=== PATIENT | male | born 2000 | race Caucasian/White ===

== ENCOUNTER 2024-03-15 23:26 | Emergency (ER) | payer BC, SELFPAY ==
[2024-03-15 23:27] VITALS: BP 106/51; PULSE 71; RESP 18; TEMP 36.4; O2SAT 97; BMI 23.7
[2024-03-15 23:46] LABS: Basophils Percent Auto 0.3 % (0-2); Eosinophils Absolute Auto 0.2 X10*3/uL (0.0-0.4); Eosinophils Percent Auto 2.5 % (0-4); Hematocrit 46.5 % (42.0-52.0); Hemoglobin 15.6 g/dl (14.0-18.0); Imm Gran Abs Auto 0.01 X10*3/uL (0.00-0.03); Imm Gran Pct Auto 0.1 % (0.0-0.4); Lymphocytes Percent Auto 14.1 % (20-40); MANUAL DIFF FLAG NO; Mean Corpuscular HGB Conc 33.5 g/dl (31.0-36.0); Mean Corpuscular Hemoglobin 29.9 pg (27.0-33.0); Mean Corpuscular Volume 89.3 fL (80.0-98.0); Mean Platelet Volume 10.7 fL (9.4-12.4); Monocytes Absolute Auto 0.7 X10*3/uL (0.1-1.2); Monocytes Percent Auto 9.3 % (2-11); Neutrophils Absolute Auto 5.3 x10*3/uL (2.0-8.3); Neutrophils Percent Auto 73.7 % (45-73); Platelet Count 167 X10*3/uL (160-400); Red Blood Count 5.21 X10*6/uL (4.60-5.80); Red Cell Distribution Width 12.1 % (11.0-16.0); White Blood Count 7.2 X10*3/uL (4.8-10.8)
[2024-03-15 23:56] LABS: IDNOW Serial# 6674DD1D; Strep A Nucleic Acid Negative (Negative)
[2024-03-15 23:59] LABS: Alanine Aminotransferase 24 U/L (0-40); Albumin Level 4.4 g/dL (3.5-5.0); Alkaline Phosphatase 80 U/L (39-117); Anion Gap 13 (12-20); Aspartate Amino Transferase 27 U/L (5-37); Blood Urea Nitrogen 18 mg/dL (9-16); Calcium 9.4 mg/dL (8.4-10.2); Carbon Dioxide 22 mmol/L (22-29); Chloride 108 mmol/L (96-108); Creatinine Clr Calc Pharmacy 142.8; Estimated Glomerular Filt Rate > 60; Glucose Random 97 mg/dL (60-115); Potassium 4.2 mmol/L (3.3-5.1); Sodium 139 mmol/L (135-145); Total Protein 7.6 g/dL (6.5-8.0)
[2024-03-16 00:24] LABS: Influenza A PCR NEGATIVE (Negative); Influenza B PCR NEGATIVE (Negative); Resp Syncy Virus RNA Qual PCR NEGATIVE (Negative); SARS COV2 PCR INHOUSE NEGATIVE (Negative)
--- OUTSIDE RECORDS SUMMARY | 2024-03-16 03:30 | XMS_ITS | Continuity of Care Document ---
Author Organization [facility] Address [address] [place] [id number]- Care Team Providers Care Senior Civil Engineer Name Role Phone Narciso SALINAS, Dede Primary Care Physician [facility] Date[facility]): 06/[facility]/21 - 07/26/21 [facility] [address] [place] [id number] Allergies, Adverse Reactions, Alerts No Known Medication Allergies Immunizations Given and Recorded Vaccine Date Status Refusal Reason influenza virus vaccine, inactivated 1 03/12/18 Gi emerita influenza virus vaccine, inactivated 08/28/14 Give n influenza virus vaccine, inactivated 05/05/13 Bryan rded Human Papillomavirus Vaccine 2 12/29/14 Given Human Papillomavirus Vaccine 05/05/13 Recorded tetanus/diphtheria/pertussis, acel(Tdap) 05/05/13 Recorded tetanus-diphtheria toxoids (Td) 05/05/13 Recorded Meningococcal Conjugate Vaccine 05/05/13 Recorded Varicella Virus Vaccine 05/05/13 Recorded Varicella Virus Vaccine 01/17/03 Recorded diphtheria/tetanus/pertussis, acel(DTaP) 12/26/05 Recorded diphtheria/tetanus/pertussis, acel(DTaP) 10/05/03 Recorded diphtheria/tetanus/pertussis, acel(DTaP) 11/01/02 Recorded diphtheria/tetanus/pertussis, acel(DTaP) 06/21/02 Recorded diphtheria/tetanus/pertussis, acel(DTaP) 02/18/02 Recorded Measles/Mumps/Rubella Virus Vaccine 12/26/05 Recor ded Measles/Mumps/Rubella Virus Vaccine 01/17/03 Recor ded haemophilus b conjugate (PRP-OMP)vaccine 10/04/05 Recorded haemophilus b conjugate (PRP-OMP)vaccine 10/05/03 Recorded haemophilus b conjugate (PRP-OMP)vaccine 11/01/02 Recorded haemophilus b conjugate (PRP-OMP)vaccine 06/21/02 Recorded haemophilus b conjugate (PRP-OMP)vaccine 02/18/02 Recorded Poliovirus Vaccine, Inactivated 12/27/03 Recorded Poliovirus Vaccine, Inactivated 10/05/03 Recorded Poliovirus Vaccine, Inactivated 06/21/02 Recorded Poliovirus Vaccine, Inactivated 06/21/02 Recorded Poliovirus Vaccine, Inactivated 02/18/02 Recorded pneumococcal 23-valent vaccine 10/05/03 Recorded pneumococcal 23-valent vaccine 11/15/02 Recorded pneumococcal 23-valent vaccine 06/21/02 Recorded hepatitis B pediatric vaccine 11/15/02 Recorded hepatitis B pediatric vaccine 03/22/02 Recorded hepatitis B pediatric vaccine 01/22/02 Recorded 1Result Comment: [id number] 2Result Comment: Gardasil 9 Medications acetaminophen 325 mg oral capsule 2 capsule = 650 mg, By Mouth, Every 4 hours, PRN as needed for fever, # 50 capsule, 0 Refills, Maintenance, 10/09/18 16:48:08 EDT, Capsule Start Date: 10/09/18 Status: Ordered albuterol 0.083% inhalation solution 6 mL = 5 mg, Inhalation, Every 6 hours, PRN for wheezing, # 60 each, 0 Refills, Maintenance, 06/12/16 8:40:13, Solution Start Date: 06/12/16 Status: Ordered albuterol 90 mcg/inh inhalation powder 4 puffs, Inhalation, Every 4 hours, PRN as needed, # 1 each, 0 Refills, Maintenance, 06/12/16 8:40:42, Powder Start Date: 06/12/16 Status: Ordered albuterol CFC free 90 mcg/inh inhalation aerosol 2, puffs, Inhalation, Every 4 hours, May use up to 6 puffs as needed., # 1 each, Refills 3, Tot. Refills 3, Maintenance, 05/13/18 14:02:28 EST, Route to Pharmacy Electronically, [id number], [facility]/pharmacy #[id number] Start Date: 05/13/18 Status: Ordered benzoyl peroxide-clindamycin 5%-1% topical gel See Instructions, APPLY THIN LAYER IN THE MORNING IF SKIN BECOMES TOO DRY, USE EVERY OTHER DAY, # 50 Gm, 1 Refills, Maintenance, [facility] STORE [id number], 28, APPLY THIN LAYER IN THE MORNING IF SKIN BECOMES TOO DRY, USE EVERY OTHER DAY, 164, cm, 06/11/19 12:20... Start Date: 10/26/19 Status: Ordered Eucerin Plus topical lotion 1 application, Topically, 2 times a day, PRN for dry skin, # 180 mL, 0 Refills, Maintenance, 10/03/16 11:52:09, Lotion, 1 application Topically 2 times a day,PRN:for dry skin Start Date: 10/03/16 Status: Ordered Flonase 50 mcg/inh nasal spray 2 sprays, Nares, Both, Daily, # 2 each, 0 Refills, Maintenance, 10/03/16 11:51:35, [place], 2 sprays Nares, Both Daily Start Date: 10/03/16 Status: Ordered Flonase 50 mcg/inh nasal spray 2 sprays, Nares, Both, Daily in AM, # 16 Gm, 0 Refills, Maintenance, 05/13/18 14:10:56 EST, [place], 2 sprays Nares, Both Daily in AM Start Date: 05/13/18 Status: Ordered hydrocortisone 1% topical cream See Instructions, apply thin layer to affected skin 2 times a day, # 60 Gm, 3 Refills, Maintenance,07/24/17 15:53:08, apply thin layer to affected skin 2 times a day Start Date: 07/24/17 Status: Ordered ibuprofen 600 mg oral tablet 600 mg, 1, tablet, By Mouth, Every 6 hours, # 40 tablet, Refills 2, Tot. Refills 2, Maintenance, 06/19/21 17:34:00 EST, Route to Pharmacy Electronically, [facility]/pharmacy #[id number], 180.2, cm, 06/19/21 15:45:00 EST, Height, 79.5, kg, 06/19/21 15:45:00 EST, . Start Date: 06/19/21 Status: Ordered Lac-Hydrin 12% cream 1 application, Topically, 2 times a day, # 140 Gm, 3 Refills, Maintenance, 03/12/18 15:19:10 EDT, Cream, 1 application Topically 2 times a day Start Date: 03/12/18 Status: Ordered multivitamin Multiple Vitamins oral tablet 1 tablet, By Mouth, Daily, # 30 tablet, 0 Refills, Maintenance, 06/05/17 10:18:05, Tablet, 1 tabletBy Mouth Daily Start Date: 06/05/17 Status: Ordered [place] Benzoyl Peroxide Wash 7% topical soap 1 applicator, Topically, Daily, PRN Rash, # 480 mL, 0 Refills, Maintenance, 06/05/17 10:17:34, 1 applicator Topically Daily,PRN:Rash Start Date: 06/05/17 Status: Ordered tretinoin 0.01% topical gel 1 application, Topically, Daily at bedtime, apply thin layer on at night, # 45 Gm, 3 Refills, Maintenance, 06/11/19 12:21:00 EST, Gel, [facility]/pharmacy #[id number], 1 application Topically Daily at bedtime,Instr:apply thin layer on at night, 164, cm, 06/11/19 1... Start Date: 06/11/19 Status: Ordered ZyrTEC 10 mg oral tablet 1 tablet = 10 mg, By Mouth, Daily, # 90 tablet, 0 Refills, Maintenance, 10/03/16 11:51:07, Tablet Start Date: 10/03/16 Status: Ordered Problem List Condition Effective Dates Status Health Status Inform ant Asthma(Confirmed) Active COVID-19(Confirmed) Active Cryptorchidism, unilateral(Confirmed) Active Social History Social History Type Response Smoking Status Never smoker; Tobacc o user in household: No entered on: 06/05/17 Sex
--- OUTSIDE RECORDS SUMMARY | 2024-03-16 03:30 | XMS_ITS | Continuity of Care Document ---
Author Organization [facility] Address [address] [place] [address]- Care Team Providers Care Charging Car Operator Name Role Phone Narciso SALINAS, Dede Primary Care Physician [facility] Date[facility]s): 07/01/22 - 07/31/[address] [address] Allergies, Adverse Reactions, Alerts No Known Medication [...] B pediatric vaccine 01/22/02 Recorded 1Result Comment: [id number] 2Result Comment: Gardasil 9 Medications acetaminophen 325 [...] 05/13/18 14:02:28 EST, Route to Pharmacy Electronically, [id number], [facility]/pharmacy #[id number] Start Date: 05/13/18 Status: Ordered benzoyl peroxide-clindamycin 5%-1% topical gel See Instructions, APPLY THIN LAYER IN THE MORNING IF SKIN BECOMES TOO DRY, USE EVERY OTHER DAY, # 50 Gm, 1 Refills, Maintenance, [facility] STORE [id number], 28, APPLY THIN LAYER IN THE MORNING [...] 2 each, 0 Refills, Maintenance, 10/03/16 11:51:35, [place], 2 sprays Nares, Both Daily Start Date: 10/03/16 Status: Ordered Flonase 50 mcg/inh nasal spray 2 sprays, Nares, Both, Daily in AM, # 16 Gm, 0 Refills, Maintenance, 05/13/18 14:10:56 EST, [place], 2 sprays Nares, Both Daily in AM [...] 06/19/21 17:34:00 EST, Route to Pharmacy Electronically, [facility]/pharmacy #[id number], 180.2, cm, 06/19/21 15:45:00 EST, Height, [...] Mouth Daily Start Date: 06/05/17 Status: Ordered [place] Benzoyl Peroxide Wash 7% topical soap 1 applicator, Topically, Daily, PRN Rash, # 480 mL, 0 Refills, Maintenance, 06/05/17 10:17:34, 1 applicator Topically Daily,PRN:Rash Start Date: 06/05/17 Status: Ordered tretinoin 0.01% topical gel 1 application, Topically, Daily at bedtime, apply thin layer on at night, # 45 Gm, 3 Refills, Maintenance, 06/11/19 12:21:00 EST, Gel, [id number], 1 application Topically Daily at bedtime,Instr:apply thin layer on at night, 164, cm, 06/11/19 1... Start Date: 06/11/19 Status: Ordered ZyrTEC 10 mg oral tablet 1 tablet = 10 mg, By Mouth, Daily, # 90 tablet, 0 Refills, Maintenance, 10/03/16 11:51:07, Tablet Start Date: 10/03/16 Status: Ordered Problem List Condition Confirmation Course Effective Dates Status Health St atus Informant Asthma Confirmed Active COVID-19 Confirmed Active Cryptorchidism, unilateral Confirmed Active Social History Social History Type Response Smoking Status Never smoker; Tobacc o user in household: No entered on: 06/05/17 Sex Patient Care team information Care Team Personnel Name: Dede Stuart MD Position: [facility] Primary Care Physician Member Role: PCP Address: Address: [address] [place] [address]- Care Team Related Persons Name: ROSEANNA DILL Address: home [address] [facility] [address]
--- OUTSIDE RECORDS SUMMARY | 2024-03-16 03:30 | XMS_ITS | Continuity of Care Document ---
Author Organization [facility] Address [address] [place] [address]- Care Team Providers Care Care Program Director Name Role Phone Narciso SALINAS, Dede Primary Care Physician [phone] [facility] Date[facility]s): 08/10/21 - 09/15/[address] [id number] Attending Physician: Not on Staff, Attending MD Referring Physician: Josias Alanis DO Allergies, Adverse Reactions, Alerts No Known Medication Allergies Immunizations Given and Recorded Vaccine Date Status Refusal Reason influenza virus vaccine, inactivated 1 03/12/18 Gi emerita influenza virus vaccine, inactivated 08/28/14 Give n influenza virus vaccine, inactivated 05/05/13 Rbyan rded Human Papillomavirus Vaccine 2 12/29/14 Given [...] B pediatric vaccine 01/22/02 Recorded 1Result Comment: [id number] 2Result Comment: Gardasil 9 Medications acetaminophen 325 [...] 05/13/18 14:02:28 EST, Route to Pharmacy Electronically, [id number], [facility]/pharmacy #[id number] Start Date: 05/13/18 Status: Ordered benzoyl peroxide-clindamycin 5%-1% topical gel See Instructions, APPLY THIN LAYER IN THE MORNING IF SKIN BECOMES TOO DRY, USE EVERY OTHER DAY, # 50 Gm, 1 Refills, Maintenance, [facility], 28, APPLY THIN LAYER IN THE MORNING [...] 2 each, 0 Refills, Maintenance, 10/03/16 11:51:35, [place], 2 sprays Nares, Both Daily Start Date: 10/03/16 Status: Ordered Flonase 50 mcg/inh nasal spray 2 sprays, Nares, Both, Daily in AM, # 16 Gm, 0 Refills, Maintenance, 05/13/18 14:10:56 EST, [place], 2 sprays Nares, Both Daily in AM [...] 06/19/21 17:34:00 EST, Route to Pharmacy Electronically, [facility]/pharmacy #[id number], 180.2, cm, 06/19/21 15:45:00 EST, Height, [...] Mouth Daily Start Date: 06/05/17 Status: Ordered [place] Benzoyl Peroxide Wash 7% topical soap 1 applicator, Topically, Daily, PRN Rash, # 480 mL, 0 Refills, Maintenance, 06/05/17 10:17:34, 1 applicator Topically Daily,PRN:Rash Start Date: 06/05/17 Status: Ordered tretinoin 0.01% topical gel 1 application, Topically, Daily at bedtime, apply thin layer on at night, # 45 Gm, 3 Refills, Maintenance, 06/11/19 12:21:00 EST, Gel, [facility]/pharmacy #0957, 1 application Topically Daily at bedtime,Instr:apply [...]
--- OUTSIDE RECORDS SUMMARY | 2024-03-16 03:30 | XMS_ITS | Continuity of Care Document ---
Author Organization [facility] Address [address] [place] [address]- Care Team Providers Care Contact Acid Plant Operator Helper Name Role Phone Dede Stuart MD Primary Care Physician [phone] Encounter [facility] Date(s): 10/28/22 - 11/27/22 [facility] [address] [place] [address]- Attending Physician: Keaton Decker Admitting Physician: AdmtrKeaton Referring Physician: Admtr, ArRomulo Allergies, Adverse Reactions, Alerts No Known Medication [...] B pediatric vaccine 01/22/02 Recorded 1Result Comment: [id number] 2Result Comment: Gardasil 9 Medications Flonase 50 mcg/inh nasal spray 2 sprays, Nares, Both, Daily, # 2 each, 0 Refills, Maintenance, 10/28/22 11:01:00 EDT, [place], [facility], 2 sprays Nares, Both Daily, 180.3, cm, 10/28/22 8:41:00 EDT, Height, 93.7, kg, 10/28/22 8:41:00 EDT, Dry Weight Start Date: 10/28/22 Status: Ordered ZyrTEC 10 mg oral tablet 1 tablet = 10 mg, By Mouth, Daily, # 90 tablet, 0 Refills, Maintenance, 10/28/22 11:01:00 EDT, Tablet, [id number], 180.3, cm, 10/28/22 8:41:00 EDT, Height, 93.7, kg, 10/28/22 8:41:00 EDT, DryWeight Start Date: 10/28/22 Status: Ordered Problem List Condition Confirmation Course Effective Dates Status Health St at[facility] Informant Asthma Confirmed Active COVID-19 Confirmed Active Cryptorchidism, unilateral Confirmed Active Social History Social History Type Response Smoking Status Never smoker; Tobacc o user in household: No entered on: 06/05/17 Sex Note * Marni Emery: PERFORM, SIGN, VERIFY Event Display: Patient Education/Instruction Authored Date: [id number] [facility] Clinical Summary Person Information Visit Date 06/03/2019 15:15:00 Name DMITRIY DILL Age 18 Years 2000 PCP Dede Stuart MD PCP Sex Male Race White Ethnicity / Language Algerian You can now view a summary of your hospital visit from the comfort of your home through a free online portal called [employer]. [employer] is a website that allows you to securely view your medical information including discharge summary, medications and follow-up visits. You can also send a secure electronic message to your doctor???s office to request appointments, renew medicationsor just ask a question. You can enroll at [email or web address] or register during your next office visit. Smoking can increase your chances of developing chronic health problems and can cause harmful effects to other family members in your house. If you smoke, you are strongly encouraged to quit. Please call the [place] Smokers??? Helpline at 0-612-CJKYNOW (or ) or log on to [email or web address] for more information. The National Suicide Prevention Hotline is available 16/12 if you or someone you know needs to find a reason to keep living. By calling 3-653-071-[employer] (0831) you'll be connected to a skilled, trained counselor at a crisis center in your area. Reason for Visit: Allergy Info: No Known Medication Allergies Smoking Status ?Never??smoker Vital Signs Height Weight BMI Blood Pressure / Temperature Pulse Rate Respiratory Rate 02 Sat Mode of Delivery / Medication Information Acetaminophen??(acetaminophen??325??mg??oral??capsule) 2??capsule??Oral??every??4??hours??as??needed ??as??needed??for??fever.??Refills:??0. Albuterol??(albuterol??0.083%??inhalation??solution) 6??Milliliter??Inhalation??every??6??hours??as? ?needed??for??wheezing.??Refills:??0. Albuterol??(albuterol??90??mcg/inh??inhalation??powder) 4??puff(s)??Inhalation??every??4??hours??as??needed.??Refills:??0. Albuterol??(albuterol??CFC??free??90??mcg/inh??inhalation??aerosol) 2??puff(s)??Inhalation??every??4 ??hours.??May??use??up??to??6??puffs??as??needed..??Refills:??3. Ammonium??Lactate??12%??(Lac-Hydrin??12%??cream) 1??martha??Topically??twice??a??day.??Refills:??3. Benzoyl??Peroxide??Topical??(NH??Benzoyl??Peroxide??Wash??7%??topical??soap) 1??applicator??Topically??Daily??as??needed??Rash.??Refills:??0. Cetirizine??(ZyrTEC??10??mg??oral??tablet) 1??tab(s)??Oral??Daily.??Refills:??0. Emollients,??Topical??(Eucerin??Plus??topical??lotion) 1??martha??Topically??twice??a??day??as??needed??for??dry??skin.??Refills:??0. Fluticasone??Nasal??(Flonase??50??mcg/inh??nasal??spray) 2??spray(s)??Nares,??Both??Daily.??Refills:??0. Fluticasone??Nasal??(Flonase??50??mcg/inh??nasal??spray) 2??spray(s)??Nares,??Both??Daily??in??the??morning.??Refills:??0. Hydrocortisone??Topical??(hydrocortisone??1%??topical??cream) apply??thin??layer??to??affected??skin??2??times??a??day.??Refills:??3. Ibuprofen??(ibuprofen??600??mg??oral??tablet) 1??tab(s)??Oral??every??6??hours??as??needed??as??need ed??for??pain.??Refills:??1. Ibuprofen??(ibuprofen??600??mg??oral??tablet) 1??tab(s)??Oral??every??6??hours.??Refills:??2. Ibuprofen??(ibuprofen??600??mg??oral??tablet) 1??tab(s)??Oral??4??times??a??day.??Refills:??0. Multivitamin??(multivitamin??Multiple??Vitamins??oral??tablet) 1??tab(s)??Oral??Daily.??Refills:??0. Future Orders ?No future orders Orders Completed this Visit ?No visit orders documented Problem List Problem Asthma Diagnosis Procedures ?No Procedures Documented If the following labs have been performed in the last year, the most recent result is displayed below. Diagnostic Results Lab Result Value Date Lead Hemoglobin A1C LDL HDL Triglycerides Total Cholesterol Disclaimer: The information provided is of a general nature and is intended to be used in conjunction with the recommendations and advice of your health care practitioner. Every effort has been made to ensure that the information provided is accurate and complete at the time it is provided to you however, as your needs change, or, as new information becomes available, different or additional instructions may be required. If you have questions, please consult with your primary care provider or pharmacist, as appropriate. This information is not intended to serve as substitution for assessment and evaluation by a qualified health care provider. If you do not have a primary care provider, you may find a [facility] provider by calling [facility] [employer] [facility] at [phone]. For information about the plan of care including goals and instructions for your diagnosis, please see the patient education orders section of this document. Patient Visit Summary: Scheduled Appointments Future Appointments ?No Future Appointments Scheduled Follow-Up Instructions With: Address: When: Parent chose not to schedule W[facility] Additional Patient Instructions: Patient Education Materials Additional Provider Instructions: Additional Instructions: Patient Care team information Care Team Personnel Name: Dede Stuart MD Position: [facility] Physician - Primary Care Member Role: PCP Address: Address: [address] [place] [address] [place] [address]- Care Team Related Persons Name: ROSEANNA DILL Address: home [address] [facility] [address] [place] [address]
--- OUTSIDE RECORDS SUMMARY | 2024-03-16 03:31 | XMS_ITS | Continuity of Care Document ---
Author Organization [facility] Address [address] [place] [address]- Care Team Providers Care Psychiatric Social Worker Supervisor Name Role Phone Narciso SALINAS, Dede Primary Care Physician [phone] [facility] Date[place] 07/13/21 - 08/12/21 [facility] [address] [place] [address]- Attending Physician: Payal Bingham MD Admitting Physician: Payal Bingham MD Allergies, Adverse Reactions, Alerts No Known Medication [...] B pediatric vaccine 01/22/02 Recorded 1Result Comment: [id number] 2Result Comment: Gardasil 9 Medications acetaminophen 325 [...] 05/13/18 14:02:28 EST, Route to Pharmacy Electronically, [id number], [facility]/pharmacy #[id number] Start Date: 05/13/18 Status: Ordered benzoyl peroxide-clindamycin 5%-1% topical gel See Instructions, APPLY THIN LAYER IN THE MORNING IF SKIN BECOMES TOO DRY, USE EVERY OTHER DAY, # 50 Gm, 1 Refills, Maintenance, [facility], 28, APPLY THIN LAYER IN THE MORNING [...] 2 each, 0 Refills, Maintenance, 10/03/16 11:51:35, [place], 2 sprays Nares, Both Daily Start Date: 10/03/16 Status: Ordered Flonase 50 mcg/inh nasal spray 2 sprays, Nares, Both, Daily in AM, # 16 Gm, 0 Refills, Maintenance, 05/13/18 14:10:56 EST, [place], 2 sprays Nares, Both Daily in AM [...] 06/19/21 17:34:00 EST, Route to Pharmacy Electronically, [facility]/pharmacy #0957, 180.2, cm, 06/19/21 15:45:00 EST, Height, [...] Mouth Daily Start Date: 06/05/17 Status: Ordered [place] Benzoyl Peroxide Wash 7% topical soap 1 applicator, Topically, Daily, PRN Rash, # 480 mL, 0 Refills, Maintenance, 06/05/17 10:17:34, 1 applicator Topically Daily,PRN:Rash Start Date: 06/05/17 Status: Ordered tretinoin 0.01% topical gel 1 application, Topically, Daily at bedtime, apply thin layer on at night, # 45 Gm, 3 Refills, Maintenance, 06/11/19 12:21:00 EST, Gel, [facility]/pharmacy #0957, 1 application Topically Daily at bedtime,Instr:apply [...]
--- OUTSIDE RECORDS SUMMARY | 2024-03-16 03:31 | XMS_ITS | Continuity of Care Document ---
Author Organization [facility] Address [address] [place] [address]- Care Team Providers Care Account Development Executive Name Role Phone Nahum Ramsey MD, I Primary Care Physician Encounter [facility] Date(s): 12/04/23 - 01/03/24 [facility]/[address] [address]- Attending Physician: AdmKeaton bay Admitting Physician: AdmtrKeaton Referring Physician: Admtr, Ar8 Allergies, Adverse Reactions, Alerts No Known Allergies Immunizations Given and Recorded Vaccine Date Status Refusal Reason Meningococcal Conjugate Vaccine 07/18/23 Given Meningococcal Conjugate Vaccine 05/05/13 Recorded tetanus/diphtheria/pertussis, acel(Tdap) 07/18/23 Given tetanus/diphtheria/pertussis, acel(Tdap) 05/05/13 Recorded influenza virus vaccine, inactivated 1 03/12/18 Gi emerita influenza virus vaccine, inactivated 08/28/14 Give n influenza virus vaccine, inactivated 05/05/13 Bryan rded Human Papillomavirus Vaccine 2 12/29/14 Given Human Papillomavirus Vaccine 05/05/13 Recorded tetanus-diphtheria toxoids (Td) 05/05/13 Recorded Varicella Virus Vaccine 05/05/13 Recorded [...] B pediatric vaccine 01/22/02 Recorded 1Result Comment: [id number] 2Result Comment: Gardasil 9 Medications Flonase 50 mcg/inh nasal spray 2 sprays, Nares, Both, Daily, # 2 each, 0 Refills, Maintenance, 10/28/22 11:01:00 EDT, [place], [facility], 2 sprays Nares, Both Daily, [...] Care team information Care Team Personnel Name: Nahum Ramsey MD, I Position: S Physician - Primary Care Member Role: PCP Address: Address: [address] [place] [address]- Care Team Related Persons Name: ROSEANNA DILL Address: home [address] [place] [address] [address] [place] [address]
--- OUTSIDE RECORDS SUMMARY | 2024-03-16 03:31 | XMS_ITS | Continuity of Care Document ---
Author Organization [facility] Address [address] [place] [address]- Care Team Providers Care Zipper Measurer Name Role Phone Nahum Ramsey MD, I Primary Care Physician ( [phone] Encounter [facility] Date(s): 07/16/23 - 08/15/23 [facility] [address]- [place] Allergies, Adverse Reactions, Alerts No Known Medication [...] B pediatric vaccine 01/22/02 Recorded 1Result Comment: [id number] 2Result Comment: Gardasil 9 Medications Flonase 50 mcg/inh nasal spray 2 sprays, Nares, Both, Daily, # 2 each, 0 Refills, Maintenance, 10/28/22 11:01:00 EDT, [place], [facility], 2 sprays Nares, Both Daily, [...] Personnel Name: Nahum Ramsey MD, I Position: [facility] Physician - Primary Care Member Role: PCP Address: Address: [address] [place] [address]- Care Team Related Persons Name: ROSEANNA DILL Address: home [address] [place] [address]
--- OUTSIDE RECORDS SUMMARY | 2024-03-16 03:31 | XMS_ITS | Continuity of Care Document ---
Author Organization [facility] Address [address] [place] [address]- Care Team Providers Care Asbestos Removal Worker Name Role Phone Dede Stuart MD Primary Care Physician Encounter [facility] [place] Date(s): 06/18/21 - 06/18/[address] [address]- Discharge Disposition: A-D/C Home Attending Physician: Zayda Ellis MD Admitting Physician: Zayda Ellis MD Referring Physician: Not on Staff, Referring MD Allergies, Adverse Reactions, Alerts No Known [...] B pediatric vaccine 01/22/02 Recorded 1Result Comment: [id number] 2Result Comment: Gardasil 9 Medications acetaminophen 325 [...] 05/13/18 14:02:28 EST, Route to Pharmacy Electronically, [id number], [facility]/pharmacy #[id number] Start Date: 05/13/18 Status: Ordered benzoyl peroxide-clindamycin 5%-1% topical gel See Instructions, APPLY THIN LAYER IN THE MORNING IF SKIN BECOMES TOO DRY, USE EVERY OTHER DAY, # 50 Gm, 1 Refills, Maintenance, [facility], 28, APPLY THIN LAYER IN THE MORNING [...] 2 each, 0 Refills, Maintenance, 10/03/16 11:51:35, [place], 2 sprays Nares, Both Daily Start Date: 10/03/16 Status: Ordered Flonase 50 mcg/inh nasal spray 2 sprays, Nares, Both, Daily in AM, # 16 Gm, 0 Refills, Maintenance, 05/13/18 14:10:56 EST, [place], 2 sprays Nares, Both Daily in AM [...] tablet, Refills 2, Tot. Refills 2, Maintenance, 03/12/18 15:24:15 EDT, Route to Pharmacy Electronically, [id number], [facility]/pharmacy #[id number] Start Date: 03/12/18 Status: Ordered ibuprofen 600 mg oral tablet 600 mg, 1, tablet, By Mouth, Every 6 hours, PRN, # 120 tablet, Refills 1, Tot. Refills 1, Maintenance, as needed for pain, 06/11/16 9:08:15, Print Requisition Start Date: 06/11/16 Status: Ordered ibuprofen 600 mg oral tablet 600 mg, 1, tablet, By Mouth, 4 times a day, # 50 tablet, Refills 0, Tot. Refills 0, Maintenance, 10/09/18 16:48:17 EDT, Print Requisition Start Date: 10/09/18 Status: Ordered Lac-Hydrin 12% cream 1 application, Topically, 2 times a day, # 140 Gm, 3 Refills, Maintenance, 03/12/18 15:19:10 EDT, Cream, 1 application Topically 2 times a day Start Date: 03/12/18 Status: Ordered multivitamin Multiple Vitamins oral tablet 1 tablet, By Mouth, Daily, # 30 tablet, 0 Refills, Maintenance, 06/05/17 10:18:05, Tablet, 1 tabletBy Mouth Daily Start Date: 06/05/17 Status: Ordered [place] Benzoyl Peroxide Wash 7% topical soap 1 [...] Status Inform ant Asthma(Confirmed) Active COVID-19(Confirmed) Active Vital Signs Most recent to oldest [Reference Range]: 1 2 3 Oxygen Saturation [94-100 %] 100 % (06/18/21 7:35 PM) 99 % (06/18/21 5:26 PM) Pulse Rate [55-90 bpm] 67 bpm (06/18/21 7:35 PM) 75 bpm (06/18/21 5:26 PM) Blood Pressure [90-138/55-84 mm Hg] 122/42mm Hg (06/18/21 7:35 PM) 123/42mm Hg (06/18/21 5:27 PM) 114/44mm Hg (06/18/21 5:26 PM) Respiratory Rate [16-30 br/min] 16 br/min (06/18/21 5:26 PM) Temperature [96.8-100.4 DegF] 98.6 DegF (06/18/21 7:35 PM) 98.4 DegF (06/18/21 5:26 PM) Mode of Delivery (Oxygen) Room air (06/18/21 7:35 PM) Room air (06/18/21 5:26 PM) Blood pressure sites Arm, right (06/18/21 7:35 PM) Arm, right (06/18/21 5:27 PM) Arm, left (06/18/21 5:26 PM) Temperature Route Oral (06/18/21 7:35 PM) Oral (06/18/21 5:26 PM) Social History Social History Type Response Smoking Status Never smoker; Tobacc o user in household: No entered on: 06/05/17 Sex
--- OUTSIDE RECORDS SUMMARY | 2024-03-16 03:31 | XMS_ITS | Continuity of Care Document ---
Author Organization [facility] ter Address [address] [place] [address]- Care Team Providers Care Charge Coordinator Name Role Phone Dede Stuart MD Primary Care Physician Encounter [facility] [place] Date(s): 05/28/21 - 05/28/[address] [address]- Encounter Diagnosis COVID-19(Final) - 05/28/21 Discharge Disposition: A-D/C Home Attending Physician: Juliette Boswell MD Admitting Physician: Juliette Boswell MD Referring Physician: Not on Staff, Referring [...] B pediatric vaccine 01/22/02 Recorded 1Result Comment: [id number] 2Result Comment: Gardasil 9 Medications acetaminophen 325 [...] 05/13/18 14:02:28 EST, Route to Pharmacy Electronically, [id number], [facility]/pharmacy #[id number] Start Date: 05/13/18 Status: Ordered benzoyl peroxide-clindamycin 5%-1% topical gel See Instructions, APPLY THIN LAYER IN THE MORNING IF SKIN BECOMES TOO DRY, USE EVERY OTHER DAY, # 50 Gm, 1 Refills, Maintenance, [facility], 28, APPLY THIN LAYER IN THE MORNING [...] 2 each, 0 Refills, Maintenance, 10/03/16 11:51:35, [place], 2 sprays Nares, Both Daily Start Date: 10/03/16 Status: Ordered Flonase 50 mcg/inh nasal spray 2 sprays, Nares, Both, Daily in AM, # 16 Gm, 0 Refills, Maintenance, 05/13/18 14:10:56 EST, [place], 2 sprays Nares, Both Daily in AM [...] 03/12/18 15:24:15 EDT, Route to Pharmacy Electronically, [id number], [facility]/pharmacy #[id number] Start Date: 03/12/18 Status: Ordered [...] Mouth Daily Start Date: 06/05/17 Status: Ordered [place] Benzoyl Peroxide Wash 7% topical soap 1 applicator, Topically, Daily, PRN Rash, # 480 mL, 0 Refills, Maintenance, 06/05/17 10:17:34, 1 applicator Topically Daily,PRN:Rash Start Date: 06/05/17 Status: Ordered tretinoin 0.01% topical gel 1 application, Topically, Daily at bedtime, apply thin layer on at night, # 45 Gm, 3 Refills, Maintenance, 06/11/19 12:21:00 EST, Gel, [facility]/pharmacy #[id number], 1 application Topically Daily at bedtime,Instr:apply [...] recent to oldest [Reference Range]: 1 2 Oxygen Saturation [94-100 %] 99 % (05/28/21 10:03 AM) 100 % (05/28/21 6:01 AM) Pulse Rate [55-90 bpm] 97 bpm *H* (05/28/21 10:03 AM) 91 bpm *H* (05/28/21 6:01 AM) Blood Pressure [90-138/55-84 mm Hg] 146/ 58mm Hg *H* (05/28/21 10:03 AM) 126/57mm Hg (05/28/21 6:01 AM) Respiratory Rate [16-30 br/min] 16 br/mi n (05/28/21 10:03 AM) 16 br/min (05/28/21 6:01 AM) Temperature [96.8-100.4 DegF] 100.5 DegF *H* (05/28/21 10:03 AM) 100.7 DegF *H* (05/28/21 6:01 AM) Mode of Delivery (Oxygen) Room air (05/28/21 10:03 AM) Room air (05/28/21 6:01 AM) Blood pressure sites Arm, right (05/28/21 10:03 AM) Arm, left (05/28/21 6:01 AM) Temperature Route Oral (05/28/21 10:03 AM) Oral (05/28/21 6:01 AM) Social History Social History Type Response Smoking Status Never smoker; Tobacc o user in household: No entered on: 06/05/17 Sex
--- OUTSIDE RECORDS SUMMARY | 2024-03-16 03:31 | XMS_ITS | Continuity of Care Document ---
Author Organization [facility] Address [address] [place] [address]- Care Team Providers Care Engineer Steam Name Role Phone Nahum Ramsey MD, I Primary Care Physician ( [phone] [place] [facility] [place](s): 11/07/23 - 12/07/23 [facility]/[address] [address]- Allergies, Adverse Reactions, Alerts No Known Allergies [...] B pediatric vaccine 01/22/02 Recorded 1Result Comment: [id number] 2Result Comment: Gardasil 9 Medications Flonase 50 mcg/inh nasal spray 2 sprays, Nares, Both, Daily, # 2 each, 0 Refills, Maintenance, 10/28/22 11:01:00 EDT, [place], [id number], 2 sprays Nares, Both Daily, [...] Primary Care Member Role: PCP Address: Address: [address] [place] [address]- Care Team Related Persons Name: ROSEANNA DILL Address: home [address] [place] [address]
--- OUTSIDE RECORDS SUMMARY | 2024-03-16 03:31 | XMS_ITS | Continuity of Care Document ---
Author Organization [facility] Address [address] [place] [address]- Care Team Providers Care Entry Level Manager Name Role Phone Nahum Ramsey MD, I Primary Care Physician [place] [facility] [place](s): 07/18/23 - 08/17/23 [facility] [address]- Attending Physician: Keaton Decker Admitting Physician: AdmtrKeaton [...] B pediatric vaccine 01/22/02 Recorded 1Result Comment: [id number] 2Result Comment: Gardasil 9 Medications Flonase 50 mcg/inh nasal spray 2 sprays, Nares, Both, Daily, # 2 each, 0 Refills, Maintenance, 10/28/22 11:01:00 EDT, [place], [facility], 2 sprays Nares, Both Daily, [...] o user in household: No entered on: 1/11/18 Sex Patient Care team information Care Team Personnel Name: Nahum Ramsey MD, I Position: S Physician - Primary Care Member Role: PCP Address: Address: [address] [place] [address]- Care Team Related Persons Name: ANIYAH ROSEANNA Address: home [address] [facility] [address] [place] [address]
--- OUTSIDE RECORDS SUMMARY | 2024-03-16 03:31 | XMS_ITS | Continuity of Care Document ---
Author Organization [facility] Address [address] [place] [address]- Care Team Providers Care Trestleman Name Role Phone Narciso SALINAS, Dede Primary Care Physician Encounter [facility] Date(s): 06/03/19 - 06/13/19 [facility] [address] [place] [address]- Attending Physician: Keaton Decker Admitting Physician: Keaton Decker Referring Physician: AdmtrKeaton Allergies, Adverse Reactions, Alerts No Known Medication [...] 05/05/13 Recorded Varicella Virus Vaccine 01/17/03 Recorded tetanus/diphtheria/pertussis, acel(Tdap) 05/05/13 Recorded Meningococcal Conjugate Vaccine 05/05/13 Recorded Measles/Mumps/Rubella Virus Vaccine 12/26/05 Recor ded Measles/Mumps/Rubella Virus Vaccine 01/17/03 Recor ded diphtheria/tetanus/pertussis, acel(DTaP) 12/26/05 Recorded diphtheria/tetanus/pertussis, acel(DTaP) 10/05/03 Recorded diphtheria/tetanus/pertussis, acel(DTaP) 11/01/02 Recorded diphtheria/tetanus/pertussis, acel(DTaP) 06/21/02 Recorded diphtheria/tetanus/pertussis, acel(DTaP) 02/18/02 Recorded haemophilus b conjugate (PRP-OMP)vaccine 10/04/05 Recorded haemophilus [...] B pediatric vaccine 01/22/02 Recorded 1Result Comment: [id number] 2Result Comment: Gardasil 9 Medications acetaminophen 325 [...] 05/13/18 14:02:28 EST, Route to Pharmacy Electronically, [id number], [facility]/pharmacy #[id number] Start Date: 05/13/18 Status: Ordered benzoyl peroxide-clindamycin 5%-1% topical gel 1 application, Topically, 2 times a day, apply thin layer in the morning; if skin becomes too dry, use every other day, # 25 Gm, 3 Refills, Maintenance, 06/11/19 12:21:00 EST, Gel, [facility]/pharmacy #[id number], 1 application Topically 2 times a day,Instr:apply... Start Date: 06/11/19 Status: Ordered Eucerin Plus topical lotion 1 application, Topically, 2 times a day, PRN for dry skin, # 180 mL, 0 Refills, Maintenance, 10/03/16 11:52:09, Lotion, 1 application Topically 2 times a day,PRN:for dry skin Start Date: 10/03/16 Status: Ordered Flonase 50 mcg/inh nasal spray 2 sprays, Nares, Both, Daily, # 2 each, 0 Refills, Maintenance, 10/03/16 11:51:35, [place], 2 sprays Nares, Both Daily Start Date: 10/03/16 Status: Ordered Flonase 50 mcg/inh nasal spray 2 sprays, Nares, Both, Daily in AM, # 16 Gm, 0 Refills, Maintenance, 05/13/18 14:10:56 EST, [place], 2 sprays Nares, Both Daily in AM [...] Print Requisition Start Date: 10/09/18 Status: Ordered ibuprofen 600 mg oral tablet 600 mg, 1, tablet, By Mouth, Every 6 hours, # 40 tablet, Refills 2, Tot. Refills 2, Maintenance, 03/12/18 15:24:15 EDT, Route to Pharmacy Electronically, [id number], [facility]/pharmacy #[id number] Start Date: 03/12/18 Status: Ordered ibuprofen 600 mg oral tablet 600 mg, 1, tablet, By Mouth, Every 6 hours, PRN, # 120 tablet, Refills 1, Tot. Refills 1, Maintenance, as needed for pain, 06/11/16 9:08:15, Print Requisition Start Date: 06/11/16 Status: Ordered Lac-Hydrin 12% cream 1 application, Topically, 2 times a day, # 140 Gm, 3 Refills, Maintenance, 03/12/18 15:19:10 EDT, Cream, 1 application Topically 2 times a day Start Date: 03/12/18 Status: Ordered multivitamin Multiple Vitamins oral tablet 1 tablet, By Mouth, Daily, # 30 tablet, 0 Refills, Maintenance, 06/05/17 10:18:05, Tablet, 1 tabletBy Mouth Daily Start Date: 06/05/17 Status: Ordered [place] Benzoyl Peroxide Wash 7% topical soap 1 applicator, Topically, Daily, PRN Rash, # 480 mL, 0 Refills, Maintenance, 06/05/17 10:17:34, 1 applicator Topically Daily,PRN:Rash Start Date: 06/05/17 Status: Ordered tretinoin 0.01% topical gel 1 application, Topically, Daily at bedtime, apply thin layer on at night, # 45 Gm, 3 Refills, Maintenance, 06/11/19 12:21:00 EST, Gel, [facility]/pharmacy #[id number], 1 application Topically Daily at bedtime,Instr:apply thin layer on at night, 164, cm, 06/11/19 1... Start Date: 06/11/19 Status: Ordered ZyrTEC 10 mg oral tablet 1 tablet = 10 mg, By Mouth, Daily, # 90 tablet, 0 Refills, Maintenance, 10/03/16 11:51:07, Tablet Start Date: 10/03/16 Status: Ordered Problem List Condition Effective Dates Status Health Status Inform ant Asthma(Confirmed) Active Social History Social History Type Response Smoking Status Never smoker; Tobacc o user in household: No entered on: 06/05/17 Sex
--- OUTSIDE RECORDS SUMMARY | 2024-03-16 03:31 | XMS_ITS | Continuity of Care Document ---
Author Organization [facility] Address [address] [place] [address]- Care Team Providers Care Jd Edwards Consultant Name Role Phone Dede Stuart MD Primary Care Physician [phone] Encounter [facility] [place] Date(s): 11/08/22 - 12/08/22 [facility] [address] [place] [id number] Allergies, Adverse Reactions, Alerts No Known [...] B pediatric vaccine 01/22/02 Recorded 1Result Comment: [id number] 2Result Comment: Gardasil 9 Medications Flonase 50 mcg/inh nasal spray 2 sprays, Nares, Both, Daily, # 2 each, 0 Refills, Maintenance, 10/28/22 11:01:00 EDT, [place], [facility], 2 sprays Nares, Both Daily, [...] Team Personnel Name: Dede Stuart MD Position: S Physician - Primary Care Member Role: PCP Address: Address: [address] [place] [address] [place] [address]- Care Team Related Persons Name: ANIYAH ROSEANNA Address: home [address] [place] [address]
--- OUTSIDE RECORDS SUMMARY | 2024-03-16 03:31 | XMS_ITS | Continuity of Care Document ---
Author Organization [facility] Address [address] [place] [address]- Care Team Providers Care Gang Boss Name Role Phone Dede Stuart MD Primary Care Physician [place] [facility] [place]s): 07/13/21 - 08/12/21 [facility] [address] [place] [address]- Attending Physician: Keaton Decker Admitting Physician: AdmtrKeaton Referring Physician: Admtr, ArRmoulo Allergies, Adverse Reactions, Alerts No Known Medication [...] B pediatric vaccine 01/22/02 Recorded 1Result Comment: [id number] 2Result Comment: Gardasil 9 Medications acetaminophen 325 [...] 05/13/18 14:02:28 EST, Route to Pharmacy Electronically, [id number], [facility]/pharmacy #[id number] Start Date: 05/13/18 Status: Ordered benzoyl peroxide-clindamycin 5%-1% topical gel See Instructions, APPLY THIN LAYER IN THE MORNING IF SKIN BECOMES TOO DRY, USE EVERY OTHER DAY, # 50 Gm, 1 Refills, Maintenance, [facility], 28, APPLY THIN LAYER IN THE MORNING [...] 2 each, 0 Refills, Maintenance, 10/03/16 11:51:35, [place], 2 sprays Nares, Both Daily Start Date: 10/03/16 Status: Ordered Flonase 50 mcg/inh nasal spray 2 sprays, Nares, Both, Daily in AM, # 16 Gm, 0 Refills, Maintenance, 05/13/18 14:10:56 EST, [place], 2 sprays Nares, Both Daily in AM [...] 06/19/21 17:34:00 EST, Route to Pharmacy Electronically, [facility]/pharmacy #0957, 180.2, cm, 06/19/21 15:45:00 EST, Height, [...] Mouth Daily Start Date: 06/05/17 Status: Ordered [place] Benzoyl Peroxide Wash 7% topical soap 1 [...]
--- OUTSIDE RECORDS SUMMARY | 2024-03-16 03:31 | XMS_ITS | Continuity of Care Document ---
Author Organization [facility] Address [address] [place] [address]- Care Team Providers Care Driver Education Instructor Name Role Phone Narciso SALINAS, Dede Primary Care Physician Encounter [facility] Date(s): 04/02/19 - 06/30/19 [facility] [address] [place] [address]- Attending Physician: Dede Stuart MD Admitting Physician: Dede Stuart MD Allergies, Adverse Reactions, Alerts No Known [...] B pediatric vaccine 01/22/02 Recorded 1Result Comment: [id number] 2Result Comment: Gardasil 9 Medications acetaminophen 325 [...] 05/13/18 14:02:28 EST, Route to Pharmacy Electronically, [id number], [facility]/pharmacy #0957 Start Date: 05/13/18 Status: Ordered benzoyl peroxide-clindamycin 5%-1% topical gel 1 application, Topically, 2 times a day, apply thin layer in the morning; if skin becomes too dry, use every other day, # 25 Gm, 3 Refills, Maintenance, 06/11/19 12:21:00 EST, Gel, [facility]/pharmacy #0957, 1 application Topically 2 times [...] 2 each, 0 Refills, Maintenance, 10/03/16 11:51:35, [place], 2 sprays Nares, Both Daily Start Date: 10/03/16 Status: Ordered Flonase 50 mcg/inh nasal spray 2 sprays, Nares, Both, Daily in AM, # 16 Gm, 0 Refills, Maintenance, 05/13/18 14:10:56 EST, [place], 2 sprays Nares, Both Daily in AM [...] 03/12/18 15:24:15 EDT, Route to Pharmacy Electronically, [id number], [facility]/pharmacy #0957 Start Date: 03/12/18 Status: Ordered [...] Mouth Daily Start Date: 06/05/17 Status: Ordered [place] Benzoyl Peroxide Wash 7% topical soap 1 applicator, Topically, Daily, PRN Rash, # 480 mL, 0 Refills, Maintenance, 06/05/17 10:17:34, 1 applicator Topically Daily,PRN:Rash Start Date: 06/05/17 Status: Ordered tretinoin 0.01% topical gel 1 application, Topically, Daily at bedtime, apply thin layer on at night, # 45 Gm, 3 Refills, Maintenance, 06/11/19 12:21:00 EST, Gel, [facility]/pharmacy #0957, 1 application Topically Daily at [...]
--- OUTSIDE RECORDS SUMMARY | 2024-03-16 03:31 | XMS_ITS | Continuity of Care Document ---
Author Organization [facility] Address [address] [place] [address]- Care Team Providers Care Sales Enablement Lead Name Role Phone Narciso SALINAS, Dede Primary Care Physician Encounter [facility] Date(s): 08/16/21 - 09/15/[address] [address] Attending Physician: Keaton Decker Admitting Physician: AdmKeaton bay Referring Physician: AdmtrKeaton Allergies, Adverse Reactions, Alerts [...] B pediatric vaccine 01/22/02 Recorded 1Result Comment: [id number] 2Result Comment: Gardasil 9 Medications acetaminophen 325 [...] 05/13/18 14:02:28 EST, Route to Pharmacy Electronically, [id number], [facility]/pharmacy #0957 Start Date: 05/13/18 Status: Ordered benzoyl peroxide-clindamycin 5%-1% topical gel See Instructions, APPLY THIN LAYER IN THE MORNING IF SKIN BECOMES TOO DRY, USE EVERY OTHER DAY, # 50 Gm, 1 Refills, Maintenance, [facility], 28, APPLY THIN LAYER IN THE MORNING [...] 2 each, 0 Refills, Maintenance, 10/03/16 11:51:35, [place], 2 sprays Nares, Both Daily Start Date: 10/03/16 Status: Ordered Flonase 50 mcg/inh nasal spray 2 sprays, Nares, Both, Daily in AM, # 16 Gm, 0 Refills, Maintenance, 05/13/18 14:10:56 EST, [place], 2 sprays Nares, Both Daily in AM [...] 06/19/21 17:34:00 EST, Route to Pharmacy Electronically, [facility]/pharmacy #0957, 180.2, cm, 06/19/21 15:45:00 [...] Mouth Daily Start Date: 06/05/17 Status: Ordered [place] Benzoyl Peroxide Wash 7% topical soap 1 [...]
--- OUTSIDE RECORDS SUMMARY | 2024-03-16 03:31 | XMS_ITS | Continuity of Care Document ---
Author Organization [facility] ter Address [address] [place] [id number]- Care Team Providers Care Alteration Inspector Name Role Phone Dede Stuart MD Primary Care Physician [phone] Encounter [facility] Date(s): 12/18/22 - 12/18/[address] [address]- Encounter Diagnosis Viral URI with cough(Final) - 12/18/22 Discharge Disposition: A-D/C Home Attending Physician: Angela Coughlin MD Admitting Physician: Angela Coughlin MD Referring Physician: Not on Staff, Referring [...] B pediatric vaccine 01/22/02 Recorded 1Result Comment: [id number] 2Result Comment: Gardasil 9 Medications Flonase 50 mcg/inh nasal spray 2 sprays, Nares, Both, Daily, # 2 each, 0 Refills, Maintenance, 10/28/22 11:01:00 EDT, [place], [id number], 2 sprays Nares, Both Daily, [...] COVID-19 Confirmed Active Cryptorchidism, unilateral Confirmed Active Vital Signs Most recent to oldest [Reference Range]: 1 2 3 Height 194 cm (12/18/22 4:33 AM) 194 cm (12/18/22 4:18 AM) Oxygen Saturation [94-100 %] 99 % (12/18/22 5:34 AM) 97 % (12/18/22 4:18 AM) 97 % (12/18/22 4:14 AM) Pulse Rate [55-90 bpm] 78 bpm (12/18/22 5:34 AM) 77 bpm (12/18/22 4:18 AM) 86 bpm (12/18/22 4:14 AM) Blood Pressure [90-138/55-84 mm Hg] 120/41mm Hg (12/18/22 5:34 AM) 127/41mm Hg (12/18/22 4:18 AM) Respiratory Rate [16-30 br/min] 18 br/min (12/18/22 5:34 AM) 18 br/min (12/18/22 4:14 AM) Temperature [96.8-100.4 DegF] 99.1 DegF (12/18/22:34 AM) 98.5 DegF (12/18/22 4:18 AM) Mode of Delivery (Oxygen) Room air (12/18/22 5:34 AM) Room air (12/18/22 4:14 AM) Blood pressure sites Arm, left (12/18/22 5:34 AM) Arm, right (12/18/22 4:18 AM) Temperature Route Oral (12/18/22 5:34 AM) Oral (12/18/22 4:18 AM) Dry Weight 88.4 kg (12/18/22 4:33 AM) 88.4 kg (12/18/22 4:18 AM) Dry Weight Obtained Via Standing scale (12/18/22 4:18 AM) Social History Social History Type Response Smoking Status Never smoker; Tobacc o user in household: No entered on: 06/05/17 Sex Note * Angela Coughlin MD: PERFORM Event Display: Patient Education Leaflets Authored Date: [id number] Viral Syndrome (Adult) ?? [id number] Viral Syndrome (Adult) A viral illness may cause many symptoms such as fever. Other symptoms depend on the part of the body that the virus affects. If it settles in your nose, throat, and lungs, it may cause cough, sore throat, congestion, runny nose, headache, earache and other ear symptoms, or shortness of breath. If it settles in your stomach and intestinal tract, it may cause nausea, vomiting, cramping, and diarrhea. Sometimes it causes generalized symptoms like aching all over, feeling tired, loss of energy, or loss of appetite. A viral illness often lasts anywhere from a few days to a few weeks. But sometimes it lasts longer.In some cases, a more serious infection can look like a viral syndrome in the first few days of theillness. You may need another exam and additional tests to know the difference. Watch for the warning signs listed below for when to get medical advice. Home care Follow these guidelines for taking care of yourself at home: ??? If symptoms are severe, rest at home for the first 2 to 3 days. ??? Stay away from cigarette smoke - both your smoke and the smoke from others. ??? You may use txum-bgg-pdfrgke??acetaminophen or ibuprofen for fever, muscle aching, and headache, unless another medicine was prescribed for this. Antibiotics aren't used to treat viral infections. If you have chronic liver or kidney disease or ever had a stomach ulcer or gastrointestinal bleeding, talk with your healthcare provider before using these medicines. No one who is younger than 18 and ill with a fever should take aspirin. It may cause severe disease or . ??? Your appetite may be poor, so a light diet is fine. Prevent dehydration by drinking 8 to 12, 8-ounce glassesof fluids each day. This may include water; orange juice; lemonade; apple, grape, and cranberry juice; clear fruit drinks; electrolyte replacement and sports drinks; and decaffeinated teas and coffee. If you've been diagnosed with a kidney disease, ask your healthcare provider how much and what types of fluids you should drink to prevent dehydration. If you have kidney disease, drinking too much fluid can cause it build up in your body and be dangerous to your health. ??? Dcet-dzt-elezstb remedies won't shorten the length of the illness. But they may be helpful for symptoms such as cough, sore throat, nasal and sinus congestion, or diarrhea. Don't use decongestants if you have high blood pressure. ?? Follow-up care Follow up with your healthcare provider if you don't get better over the next week. ?? Call 911 Call 911 if any of these occur: ??? Convulsion ??? Feeling weak, dizzy, or like you are going to faint ??? Chest pain, or more than mild shortness of breath ?? When to get medical advice Call your healthcare provider right away if any of these occur: ??? Cough with lots of colored sputum (mucus) or blood in your sputum ??? Chest pain, shortness of breath, wheezing, or trouble breathing ??? Severe headache; face, neck, or ear pain ??? Severe, constant pain in the lower right side ofyour belly (abdominal) ??? Continued vomiting (can???t keep liquids down) ??? Frequent diarrhea (more than 5 times a day), or blood (red or black color) or mucus in diarrhea ??? Feeling weak, dizzy, or like you are going to faint ??? Extreme thirst ??? Fever of 100.4??F (38??C) or higher, or as directed by your provider ?? Last Reviewed Date: 2021 ?? [id number] [employer]. All rights reserved. This information is not intended as a substitute for professional medical care. Always follow your healthcare professional's instructions. ?? Patient Care team information Care Team Personnel Name: Dede Stuart MD Position: [facility] Physician - Primary Care Member Role: PCP Address: Address: [address] [place] [address] [place] [address]- Name: Apple Carr Position: [facility] ED TA [facility] Name: Espinoza SANTORO, Susie Position: [facility] ED RN W/OE and Tasks Member Role: Patient Care Provider Name: Angela Coughlin MD Position: [facility] ED Medicine MD Member Role: Admitting Physician Address: Address: [address] [place] [address] [place] [address]- Care Team Related Persons Name: ROSEANNA DILL Address: home [address] [place] [address]
[2024-03-16 04:51] VITALS: BP 102/33; PULSE 71; RESP 16; TEMP 36.8; O2SAT 98
--- NOTE | 2024-03-16 05:27 | ED.NAVMDI ---
HPI - Nausea/Vomiting/Diarrhea General Chief complaint: Nausea/Vomiting/Diarrhea Stated complaint: abd pain, diarrhea, vomiting Time Seen by Provider: 03/16/24 04:24 Source: patient Mode of arrival: ambulatory Limitations: no limitations History of Present Illness ED Provider: tyrell BOLAND Narrative: Patient has been having diarrhea body ache for last 2 days started after eating food had about 4 times watery stool nausea diffuse abdominal cramps no family member sick no fever no chills Related Data Previous Rx's ?Medication ?Instructions ?Recorded ondansetron 4 mg disintegrating 4 mg PO Q6-8H PRN nausea and 03/16/24 tablet vomiting #7 tabs Allergies Allergy/AdvReac Type Severity Reaction Status Date / Time No Known Allergies Allergy Verified 03/15/24 23:30 Review of Systems Review of Systems: Yes all other systems are reviewed and are negative [facility] Social History Social History Advance Directives: No Advance Directives Information Provided: No Do you have a plan to hurt others: No Plan Physical Exam Vital Signs: Vital Signs: Last Vital Signs Temp 98.2 F 03/16/24 04:51 Pulse 71 03/16/24 04:51 Resp 16 03/16/24 04:51 BP 102/33 L 03/16/24 04:51 Pulse Ox 98 03/16/24 04:51 O2 Del Method Room Air 03/16/24 04:51 BMI result Body Mass Index 23.7 Appearance: Alert. Oriented X3. No acute distress. Eyes: No pallor or icterus ENT: Pharynx normal. Oral Mucosa moist Neck: Normal inspection. Neck supple. CVS: Normal heart rate and rhythm. Pulses normal. Respiratory: No respiratory distress. Equal air entry bilateral, no wheezing/rales/rhonchi Abdomen: Soft and nontender. Bowel sounds are present, no mass palpable, no CVA tenderness Skin: Skin warm and dry. Normal skin color. Normal skin turgor. Extremities: No lower extremity edema. No calf tenderness Neuro: Oriented X 3. No motor deficit. No sensory deficit.No cerebellar signs , cranial nerves II-XII intact Medications Administered Discontinued Medications Generic Name Dose Route Start Last Admin Trade Name Freq PRN Reason Stop Dose Admin Ondansetron HCl 4 mg 03/16/24 05:32 03/16/24 05:43 Ondansetron Odt 4 Mg Tab.Anabelladis TRANSLINGU 03/16/24 05:33 4 mg ONCE ONE Administration Medical Decision Making Medical Decision Making [facility] Narrative: Patient feels better taking p.o. 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 03/15/24 23:41 03/15/24 23:41 Labs: Lab Results 03/15/24 Range/Units 23:41 WBC 7.2 (4.8-10.8) X10*3/uL RBC 5.21 (4.60-5.80) X10*6/uL Hgb 15.6 (14.0-18.0) g/dl Hct 46.5 (42.0-52.0) % MCV 89.3 (80.0-98.0) fL MCH 29.9 (27.0-33.0) pg MCHC 33.5 (31.0-36.0) g/dl RDW 12.1 (11.0-16.0) % Plt Count 167 (160-400) X10*3/uL MPV 10.7 (9.4-12.4) fL Immature Gran % (Auto) 0.1 (0.0-0.4) % Neut % (Auto) 73.7 H (45-73) % Lymph % (Auto) 14.1 L (20-40) % Mcdonough % (Auto) 9.3 (2-11) % Eos % (Auto) 2.5 (0-4) % Baso % (Auto) 0.3 (0-2) % Lymph # (Auto) 1.0 L (1.2-4.9) X10*3/uL Mcdonough # (Auto) 0.7 (0.1-1.2) X10*3/uL Eos # (Auto) 0.2 (0.0-0.4) X10*3/uL Baso # (Auto) 0.0 (0.0-0.2) X10*3/uL Abs Immat Gran (auto) 0.01 (0.00-0.03) X10*3/uL Absolute Neuts (auto) 5.3 (2.0-8.3) x10*3/uL Absolute Nucleated RBC 0.000 (0.0-0.012) X10*3/uL Nucleated RBC % (auto) 0.0 (0.0-0.2) /100WBC Sodium 139 (135-145) mmol/L Potassium 4.2 (3.3-5.1) mmol/L Chloride 108 (96-108) mmol/L Carbon Dioxide 22 (22-29) mmol/L Anion Gap 13 (12-20) BUN 18 H (9-16) mg/dL Creatinine 0.89 (0.5-1.4) mg/dL Estim Creat Clear Calc 142.8 Estimated GFR > 60 Random Glucose 97 (60-115) mg/dL Calcium 9.4 (8.4-10.2) mg/dL Total Bilirubin 1.0 (0.0-1.0) mg/dL AST 27 (5-37) U/L ALT 24 (0-40) U/L Alkaline Phosphatase 80 (39-117) U/L Total Protein 7.6 (6.5-8.0) g/dL Albumin 4.4 (3.5-5.0) g/dL Influenza Type A (PCR) NEGATIVE (Negative) Influenza Type B (PCR) NEGATIVE (Negative) RSV RNA Qual (PCR) NEGATIVE (Negative) SARS-CoV-2 RNA (RT-PCR) NEGATIVE (Negative) S. pyogenes GrpA BRANDON Negative (Negative) Discharge Plan Discharge Clinical Impression: Food poisoning Patient Disposition: Home, Self-Care Instructions: Food Poisoning (ED) Additional Instructions: Drink plenty of fluids Medicine for nausea as prescribed Imodium for severe diarrhea do not take more than 2-3 a day Prescriptions: New ondansetron 4 mg tablet,disintegrating 4 mg PO Q6-8H PRN (Reason: nausea and vomiting) Qty: 7 0RF Print Language: Ukrainian
[2024-03-16] MEDS: Ondansetron ODT 4 MG TAB.RAPDIS TRANSLINGU (05:43)
[2024-03-16 06:20] VITALS: BP 109/31; PULSE 80; RESP 14; TEMP 36.7; O2SAT 98
[2024-03-16 06:23] VITALS: BP 109/31; PULSE 80; RESP 14; TEMP 36.7; O2SAT 98
== END 2024-03-16 06:25 | disposition home or self-care (01) ==
PROVIDERS: Emergency Provider Internal Medicine; PCP Internal Medicine
DX: A05.9 Bacterial foodborne intoxication, unspecified (principal); J02.9 Acute pharyngitis, unspecified; R11.2 Nausea with vomiting, unspecified; R25.2 Cramp and spasm; M79.10 Myalgia, unspecified site; Z03.818 Encounter for observation for suspected exposure to other biological agents ruled out; Z79.899 Other long term (current) drug therapy
CPT/HCPCS: 0241U; 80053; 85025; 87651; 99283